=== PATIENT | female | born 1955 ===

== ENCOUNTER → 2017-07-09 | Day surgery (SDC) | payer OTHER ==
[2017-07-09] VITALS (9 sets, daily range): BP systolic 140–158; BP diastolic 78–88; PULSE 69–91; RESP 14–17; O2SAT 94–100
[~2017-07-09] VITALS: Ht 154.9 cm; Wt 74.8 kg
[~2017-07-09] MED LIST: BUPR100T8 PO; Bupivacaine Liposome 1.3% 20 mL Inj INFILTRATE ONE; Bupivacaine-MPF 0.25%/EPI 30 mL Inj INJ ONE; CeFAZolin 2 Gm/50 mL D5W IV Premix IV ONE; DETROL LA4 M1 PO; Dexamethasone 4 mg/mL Inj IVPUSH PRN; Dexamethasone 4 mg/mL Inj ONE; EPHEDrine Sulfate 50 mg/mL Inj IVPUSH PRN; Gentamicin 40 mg/mL 2 mL Inj IRRIGATION ONE; HYDROmorphone 1 mg/mL Inj IVPUSH PRN; Ketamine 10 mg/mL 20 mL Inj ONE; Ketorolac 15 mg/mL Inj IVPUSH ONE; LEVO112T23 PO; LISI10TA PO; Lactated Ringer's 1,000 ML IV ONE; Lactated Ringer's 1,000 ML IV SCH; Lactated Ringer's 500 ML IV PRN; MetoCLOpramide 5 mg/mL 2 mL Inj IVPUSH PRN; Ondansetron 2 mg/mL 2 mL Inj IVPUSH PRN; Ondansetron 2 mg/mL 2 mL Inj ONE; Phenylephrine 10,000 mCg/mL Inj IVPUSH PRN; Propofol 10,000 mCg/mL 20 mL Inj ONE; VIT1TABL83 PO; Vancomycin Inj 1,000 MG in IV Premix 1 EACH IV ONE; fentaNYL-PF 50 mCg/mL 2 mL Inj IVPUSH PRN; fentaNYL-PF 50 mCg/mL 2 mL Inj ONE; hydrOXYzine Pamoate 25 mg Capsule PO PRN; oxyCODONE-Acetamin 5-325 mg Tablet PO PRN
--- NOTE | 2017-07-09 07:44 | PCM.HPANE ---
Patient Data Surgeon Admitting Provider: Attending Provider:Steven Broussard MD Primary Care Physician:Marilia Garza PA-C Other Provider:Sherie Nairingham Anesthesia Reason for Visit Right Knee Arthritis Ht/WT & BMI Height (Feet): 5 Height (Inches): 1 Weight (Kilograms): 75.02 Body Mass Index 31.00 Allergies Coded Allergies: Contrast Media (Verified Allergy, Severe, generalized swelling / breathing , 08/04/09) Past Anesthesia History Anesthesia History: Denies:: Abnormal Airway, Anesthesia Reactions (nausea on arousal ), Difficult Intubation, Fam Anesthesia Reaction Diabetes History Hx Diabetes?: No (Hgb A1c 6.3 04/2017- pre diabetic ) MRSA MRSA: No Medications Hypertension Medication: Yes Home Meds Incl Beta Justin: No Reported Medications Vit B Comp/C/FA/Iron/Vit E (Vitamin B Complex Tablet)1 Each Tablet2-3 Each PO DAILY 07/01/17 Lisinopril 10 Mg Takzlu69 Mg PO DAILY 30 Days Ref 0 07/01/17 Levothyroxine (Levoxyl)112 Mcg [id number] Mcg PO DAILY Ref 0 07/01/17 Tolterodine Tartrate ER (Detrol LA)4 Mg Capsule4 Mg PO DAILY 07/01/17 Bupropion ER 100 Mg Tablet.er100 Mg PO DAILY Ref 0 07/01/17 History History of ENT Problems?: No HEENT History: Denies:: Abnormal Airway Cataracts Difficult Intubation Dysphagia Glaucoma Hearing Problem Sinus Problem TMJ Denture Type: None Teeth Condition: Within Normal Limits Hx of Heart Problems?: Yes Cardiovascular History: Positive for:: Hypertension Denies:: AICD Abdominal Aortic Aneurism Atrial Fibrillation Chest Pain Coronary Artery Disease Edema Heart Murmur Irregular Heartbeat Pacemaker Peripheral Vascular Rheumatic Fever Hx of Respiratory Problem?: No Respiratory History: Denies:: Asthma COPD Emphysema Oxygen Administration Pneumonia Tuberculosis Use of C-PAP Machine Hx Neurologic Problems?: No Neurological History: Denies:: CVA Headaches Multiple Sclerosis Parkinson's Disease Seizures TIA Hx of GI Problems?: No Gastrointestinal History: Denies:: Cirrhosis Diverticulitis Gall Bladder Disease Gastroesphageal Reflux Gastrointestinal Bleeding Heartburn Hepatitis Hiatal Hernia Liver Disease Rectal Bleeding Hx of Problems?: No Genitourinary History: Denies:: Kidney Stones Urinary Tract Infection Female Hx: Denies:: Currently (postmenopausal ) Problems with Breasts? Skin History: Denies:: History Skin Disorders? Pressure Ulcers Hx Musculoskeletal Problems?: Yes Musculoskeletal History: Positive for:: Degenerative Joint Musculoskeletal Trauma (right knee current admission problem) Osteoarthritis Denies:: Back Injury Fibromyalgia Joint Replacement Myasthenia Gravis Rheumatoid Arthritis Systemic Lupus Hx of Psycho/Social Problems?: Yes Psycho Social History: Positive for:: Hx Depression Denies:: Anxiety Hx Surgeries?: Yes (bladder lift, wrist fx, ) Hx Any Other Health Problems?: Yes Other History: Positive for:: Thyroid Disease Denies:: Cancer History Blood Transfusions: Denies:: Accept Blood Products? Blood Transfusions Hx Diabetes: No (Hgb A1c 6.3 04/2017- pre diabetic ) Hx Alcohol Use: NoHx Substance Use: NoHave You Smoked inLast 12 mo: No ( random cigarette smoker- ) Stop/Bang Treated for Sleep Apnea?: No Do You Have a CPAP Machine?: No S-Snoring: Do You Snore Loudly: No T-Tired: feel tired, fatigued: No O-Obsered: Observed not breath: No P-Blood Pressure: treated: Yes B- Body Mass Index > 35 kg/m2: No A- Age over 50: Yes N- Neck Large Circumference: No G- Gender Male: No PHONG Total Score: 2 PHONG Risk Assessment: Low Risk, <3 Yes Risk Assessment Category Category 1A: Patient has history of documented sleep apnea, and HAS NOT received any narcotic, sedative or anesthesia administration during this stay. Category 1B: Patient has history of documented sleep apnea, and HAS received any narcotic , sedative or anesthesia administration during this stay Category 2: Patient has SUSPECTED Obstructive Sleep Apnea, and HAS received any narcotic , sedative or anesthesia administration during this stay. Category 3: Patient has SUSPECTED Obstructive Sleep Apnea and HAS NOT received narcotic, sedative or anesthesia administration during this stay. Category 4: Outpatient in Procedural Areas with known sleep apnea or who screen positive for High Risk via the STOP/BANG questionnaire. Exam Exam General Appearance: Alert, Oriented X3, Cooperative, No Acute Distress HEENT/AIRWAY: MP 2 Lungs: Clear to Auscultation, Normal Air Movement Heart: Exam Unremarkable, Regular Rate/Rhythm, No Murmurs/Rubs/Gallops Plan Impression Patient chart reviewed, patient interviewed and anesthestic plan with risks, benefits, and alternatives discussed, and informed consent obtained. ASA Physical Status: ASA2 Mod Systemic Disease Anesthetic Plan: GA, Regional Block (femoral nn block), SAB Bene/Risks/Altern/Consents: Yes HP Complete Prior to Induction: Yes Addison Dunbar MD Jul 09, 2017 07:44
--- NOTE | 2017-07-09 13:51 | OP ---
[address] [address] OPERATIVE REPORT PATIENT: LIYAH MARIE : 1955 MR#: [id number] ADMIT: 07/09/2017 JOB ID: [id number] DATE OF SURGERY: 07/09/2017 PREOPERATIVE DIAGNOSIS(ES): Right knee medial compartment osteoarthritis. POSTOPERATIVE DIAGNOSIS(ES): Right knee medial compartment osteoarthritis. PROCEDURE: Unicompartmental knee arthroplasty, right knee. SURGEON: Steven Broussard MD. SLAB TRIPPER: Gali Pascual PA-C. Business Planning Analyst required due to the complexity of the operation. INDICATIONS: This woman has had severe progressive osteoarthritis symptoms uncontrolled by conservative treatment options. She elects for a unicompartmental knee replacement. She understands and accepts the potential for risks and complication which includes but is not limited to infection, thromboembolic, neurovascular events, as well as potential for implant failure, progressive arthritis in unresurfaced compartments. Understanding this, she wishes to proceed. PROCEDURE: The patient was prepped and draped in the usual sterile fashion. An anteromedial approach was made and patellar osteophyte was removed. The alignment apparatus was assembled. The proximal tibial cut was made. The spacer block was utilized and the distal femoral cut was made. The femur was sized to a #3 chamfer cutting block, fixed in appropriate position and rotation and drill holes and chamfer cuts were made. The tibia was sized to a D tibial component fixed in appropriate position and rotation. Drill stabilization holes were made. Trial reduction was performed and a 9 mm poly was chosen which produced excellent alignment, soft tissue tension and tracking. Pressurized lavage was followed by pressurized cementation. All meniscal tissue and osteophytes had been removed. Excess cement was removed during the curing process. Final construct was assembled. Tourniquet was let down. Hemostasis was achieved. Deep Hemovac drain was left. Deep closure with number #2 Quill deep followed by a 2-0 Vicryl, 3-0, and a 4-0 intracuticular stitch. Steri-Strips were applied. The patient was returned to the recovery room in stable condition. She tolerated the procedure well. There were no complications.
--- NOTE | 2017-07-12 12:37 | PCM.ANEP1 ---
Post Anesthesia PACU Phase 1 Assessment Anesthetic Administered: GA Level of Alertness: Awake, talking HUERTA's with Equal Strength: Yes Pain: No Nausea or Vomiting: No CV Function & Hydration Stable: Yes Airway Device: Oralpharangeal Airway Oxygen Delivery: Simple Mask Lungs: Clear to Auscultation, Normal Air Movement Dermatome Level: Full Sensation PACU Phase 2 Assessment Complications: No Follow up Care: No Patient Instructions Provided: N/A Addison Dunbar MD Jul 12, 2017 12:37
== END | disposition home or self-care (01) ==
LOC: SAS 06:59
PROVIDERS: ATTEND Orthopaedic Surgery
DX: M17.11 Unilateral primary osteoarthritis, right knee (principal); I10 Essential (primary) hypertension; R73.03 Prediabetes; D50.9 Iron deficiency anemia, unspecified; E53.0 Riboflavin deficiency
CPT/HCPCS: 27446; 76942; C1713; C1776; J0690; J1100; J1580; J1885; J2250; J2405; J2704; J3010; J3370; J7120